=== PATIENT | male | born 1975 | race Caucasian/White ===

== ENCOUNTER 2020-07-10 00:28 | Inpatient (IN) | payer SELFPAY ==
[~2020-07-10] VITALS: Ht 175.3 cm; Wt 100.7 kg
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
[2020-07-10 01:47] LABS: BASO # 0.1 x10^3/uL (0.0-0.2); BASO % 1 % (0-3); EOS # 0.5 x10^3/uL (0.0-0.7); EOS % 6 % (0-3); HEMATOCRIT 42.5 % (39.0-53.0); HEMOGLOBIN 14.8 g/dL (13.0-17.5); LYMPH % 26 % (24-48); MEAN CORPUSCULAR HEMOGLOBIN 33 pg (25-35); MEAN CORPUSCULAR HGB CONC 35 g/dL (31-37); MEAN CORPUSCULAR VOLUME 94 fL (79-100); MONO # 0.6 x10^3/uL (0.0-1.1); MONO % 8 % (0-9); NEUT # 4.5 x10^3/uL (1.8-7.7); NEUT % 59 % (31-73); PLATELET COUNT 217 x10^3/uL (140-400); RED BLOOD COUNT 4.52 x10^6/uL (4.30-5.70); RED CELL DISTRIBUTION WIDTH 13.2 % (11.5-14.5); WHITE BLOOD COUNT 7.7 x10^3/uL (4.0-11.0)
[2020-07-10 02:01] LABS: CALCIUM 9.4 mg/dL (8.5-10.1); CREATININE 0.9 mg/dL (0.7-1.3); GFR 91.7; POTASSIUM 3.6 mmol/L (3.5-5.1)
[2020-07-10 02:04] LABS: ALBUMIN 3.5 g/dL (3.4-5.0); ALBUMIN/GLOBULIN RATIO 1.1 (1.0-1.7); TOTAL BILIRUBIN 0.5 mg/dL (0.2-1.0); TOTAL PROTEIN 6.8 g/dL (6.4-8.2)
[2020-07-10 02:05] LABS: ACETAMIN < 2 mcg/ml (10-30); ETHANOL < 10 mg/dL (0-10); SALIC < 2.8 mg/dL (2.8-20.0)
--- NOTE | 2020-07-10 02:35 | RAD ---
XR CHEST 1V 07/10/2020 1:36 AM INDICATION: Left shoulder pain COMPARISON: None available TECHNIQUE: Portable frontal view of the chest is provided. FINDINGS: The cardiomediastinal silhouette is within normal limits. Lungs are clear. There are no significant pleural effusions. There is no pulmonary vascular congestion. No pneumothora x. No suspicious osseous abnormality. IMPRESSION: There is no acute cardiopulmonary process. Electronically signed by: Vannessa Grey MD (07/10/2020 2:33 AM) [facility]
--- NOTE | 2020-07-10 02:37 | RAD ---
XR SHOULDER_LEFT 2+ VIEWS 07/10/2020 1:36 AM INDICATION: Left shoulder pain COMPARISON: None available. TECHNIQUE: 3 views of the left shoulder are provided. FINDINGS/ IMPRESSION: There is left AC joint separation measuring approximately 2.3 cm. No acute fracture is visualized. Gl enohumeral joint is well aligned. Joint spaces are maintained. Bone mineralization is within normal l imits. Regional soft tissues are within normal limits. There is no soft tissue gas or osseous erosion . No radiopaque foreign body. Electronically signed by: Vannessa Grey MD (07/10/2020 2:34 AM) [facility]
[2020-07-10 03:03] LABS: BARBITURATES NEG (NEG); BENZODIAZEPINES NEG (NEG); CANNABINOIDS NEG (NEG); COCAINE NEG (NEG); METHADONE NEG (NEG); OPIATES NEG (NEG); PHENCYCLIDINE NEG (NEG)
[2020-07-10 03:06] LABS: AMPHETAMINE/METHAMPHETAMINE POS (NEG)
[2020-07-10] MEDS ORDERED: ACETAMINOPHEN 325 MG TABLET. PO PRN (03:45)
[2020-07-10 04:40] VITALS: BP 111/69
[2020-07-10] MEDS ORDERED: MORPHINE SULFATE 2 MG/ML VIAL. IV PRN (05:00)
[2020-07-10] MEDS ORDERED: GABA600T7 PO (05:25)
[2020-07-10] MEDS ORDERED: TRAZ-123 PO (05:25)
[2020-07-10] MEDS ORDERED: CLON2TAB PO (05:25)
[2020-07-10] MEDS ORDERED: QUET200T4 PO (05:25)
--- NOTE | 2020-07-10 05:30 | NUR ---
ADMIT NOTE The patient, ALF GARCIA, 44 y/o, M admitted by PETER ROTH MD, was given written information regarding hospital policies, unit procedures and contact persons. Patient orientated to room, admit packet reviewed, and plan of care discussed. Patient's home meds reviewed and allergies verified; pt reports no preferred pharmacy. Patient resting in bed, call light within reach, bed alarm on, and call light within reach; no other needs voiced at this time.
[2020-07-10 07:00] VITALS: BP 105/67
[2020-07-10] MEDS ORDERED: ONDANSETRON PF 4 MG/2 ML VIAL. IV PRN (07:15)
[2020-07-10] MEDS ORDERED: KETOROLAC 30 MG/ML VIAL. IVP PRN (07:15)
[2020-07-10] MEDS ORDERED: diphenhydrAMINE 50 MG/ML VIAL IVP PRN (07:15)
--- NOTE | 2020-07-10 07:17 | NUR ---
COVID tests delivered to pharmacy by CHECK[facility] at this time.
[2020-07-10] MEDS: GABAPENTIN 300 MG CAPSULE. PO SCH ×3 (07:34→20:49)
[2020-07-10] MEDS: QUEtiapine 100 MG TABLET. PO SCH ×2 (07:34→20:49)
--- NOTE | 2020-07-10 08:41 | RAD ---
EXAM: XR CLAVICLE 07/10/2020 8:23 AM CLINICAL INDICATION: Left AC joint injury. COMPARISON: Left shoulder radiograph 07/10/2020 TECHNIQUE: Bilateral clavicle radiographs FINDINGS: There is mild elevation of the left distal clavicle relative to the acromion, as well as m ild acromioclavicular joint and coracoclavicular interval widening on the left relative to the right. Chronic-appearing ossicle at the inferior margin of the distal clavicle. There is mild degenerative joint disease of the right acromioclavicular joint with osseous hypertrophy. Glenohumeral alignment i s normal. Soft tissue is normal. IMPRESSION: Findings of grade 3 left AC joint injury, possibly chronic. Electronically signed by: Soila Guzman MD (07/10/2020 8:38 AM) [id number]
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
--- NOTE | 2020-07-10 09:24 | NUR ---
refused Addendum: 07/10/20 at 8038 by STEPHANIE WOLF RN RN Amended: Links added.
[2020-07-10 11:00] VITALS: BP 111/73
--- NOTE | 2020-07-10 11:24 | PDOC ---
GENERAL General: History and physical [id number] VITAL SIGNS Vital Signs/I&O: Vital Signs Date Time Temp Pulse Resp B/P (MAP) Pulse Ox O2 Delivery O2 Flow Rate FiO2 07/10/20 07:00 97.8 88 18 105/67 (80) 97 Room Air 97.8 I & O 07/09/20 07/09/20 07/10/20 15:00 23:00 07:00 Intake Total 0 ml Balance 0 ml ALLERGIES Allergies: Allergies Coded Allergies Type Severity Reaction Last Updated Verified Penicillins Allergy Unknown 07/10/20 Yes codeine Allergy Unknown 07/10/20 Yes MEDS Medications: Current Medications Medications (Trade) Dose Ordered Sig/Angel Route PRN Reason Start Time Stop Time Status Last Admin Dose Admin Morphine Sulfate (Morphine Sulfate) 2 mg PRN Q3HRS PRN IV PAIN 07/10/20 05:00 07/10/20 05:42 LAB Lab: Laboratory Tests Test 07/10/20 01:40 07/10/20 02:47 07/10/20 07:10 White Blood Count 7.7 x10^3/uL (4.0-11.0) Red Blood Count 4.52 x10^6/uL (4.30-5.70) Hemoglobin 14.8 g/dL (13.0-17.5) Hematocrit 42.5 % (39.0-53.0) Mean Corpuscular Volume 94 fL (79-100) Mean Corpuscular Hemoglobin 33 pg (25-35) Mean Corpuscular Hemoglobin Concent 35 g/dL (31-37) Red Cell Distribution Width 13.2 % (11.5-14.5) Platelet Count 217 x10^3/uL (140-400) Neutrophils (%) (Auto) 59 % (31-73) Lymphocytes (%) (Auto) 26 % (24-48) Monocytes (%) (Auto) 8 % (0-9) Eosinophils (%) (Auto) 6 % (0-3) H Basophils (%) (Auto) 1 % (0-3) Neutrophils # (Auto) 4.5 x10^3/uL (1.8-7.7) Lymphocytes # (Auto) 2.0 x10^3/uL (1.0-4.8) Monocytes # (Auto) 0.6 x10^3/uL (0.0-1.1) Eosinophils # (Auto) 0.5 x10^3/uL (0.0-0.7) Basophils # (Auto) 0.1 x10^3/uL (0.0-0.2) Sodium Level 140 mmol/L (136-145) Potassium Level 3.6 mmol/L (3.5-5.1) Chloride Level 104 mmol/L (98-107) Carbon Dioxide Level 27 mmol/L (21-32) Anion Gap 9 (6-14) Blood Urea Nitrogen 17 mg/dL (8-26) Creatinine 0.9 mg/dL (0.7-1.3) Estimated GFR (Cockcroft-Gault) 91.7 BUN/Creatinine Ratio 19 (6-20) Glucose Level 103 mg/dL (70-99) H Calcium Level 9.4 mg/dL (8.5-10.1) Total Bilirubin 0.5 mg/dL (0.2-1.0) Aspartate Amino Transferase (AST) 24 U/L (15-37) Alanine Aminotransferase (ALT) 57 U/L (16-63) Alkaline Phosphatase 136 U/L (46-116) H Creatine Kinase 152 U/L (39-308) Total Protein 6.8 g/dL (6.4-8.2) Albumin 3.5 g/dL (3.4-5.0) Albumin/Globulin Ratio 1.1 (1.0-1.7) Salicylates Level < 2.8 mg/dL (2.8-20.0) L Salicylate Last Dose Date Unk Salicylate Last Dose Time Unk Acetaminophen Level < 2 mcg/ml (10-30) L Acetaminophen Last Dose Date Unk Acetaminophen Last Dose Time Unk Ethyl Alcohol Level < 10 mg/dL (0-10) Urine Opiates Screen Neg (NEG) Urine Methadone Screen Neg (NEG) Urine Barbiturates Neg (NEG) Urine Phencyclidine Screen Neg (NEG) Urine Amphetamine/Methamphetamine Pos (NEG) Urine Benzodiazepines Screen Neg (NEG) Urine Cocaine Screen Neg (NEG) Urine Cannabinoids Screen Neg (NEG) Urine Ethyl Alcohol Neg (NEG) SARS-CoV-2 Antigen (Rapid) Negative (NEGATIVE) Laboratory Tests 07/10/20 01:40 Laboratory Tests 07/10/20 01:40 Justifications for Admission Other Justification COLIN ABERNATHY MD Jul 10, 2020 11:24
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
[2020-07-10] MEDS: clonazePAM 0.5 MG TABLET PO PRN ×2 (13:02→20:57)
[2020-07-10 15:00] VITALS: BP 99/57
[2020-07-10 19:00] VITALS: BP 110/62
[2020-07-10] MEDS ORDERED: traZODone 100 MG TABLET. PO SCH (21:00)
[2020-07-10] MEDS ORDERED: PSYLLIUM HUSK (SUGAR FREE) 1 PKT PACKET PO SCH (21:00)
[2020-07-10 22:48] VITALS: BP 106/65
[2020-07-11 02:53] VITALS: BP 100/59
[2020-07-11 07:31] LABS: BASO # 0.1 x10^3/uL (0.0-0.2); BASO % 1 % (0-3); EOS # 0.5 x10^3/uL (0.0-0.7); EOS % 7 % (0-3); HEMATOCRIT 40.4 % (39.0-53.0); HEMOGLOBIN 13.6 g/dL (13.0-17.5); LYMPH # 1.7 x10^3/uL (1.0-4.8); LYMPH % 24 % (24-48); MEAN CORPUSCULAR HEMOGLOBIN 32 pg (25-35); MEAN CORPUSCULAR HGB CONC 34 g/dL (31-37); MEAN CORPUSCULAR VOLUME 95 fL (79-100); MONO # 0.5 x10^3/uL (0.0-1.1); MONO % 8 % (0-9); NEUT # 4.2 x10^3/uL (1.8-7.7); NEUT % 60 % (31-73); PLATELET COUNT 186 x10^3/uL (140-400); RED BLOOD COUNT 4.24 x10^6/uL (4.30-5.70); RED CELL DISTRIBUTION WIDTH 13.2 % (11.5-14.5); WHITE BLOOD COUNT 6.9 x10^3/uL (4.0-11.0)
[2020-07-11 07:34] VITALS: BP 101/56
[2020-07-11 07:53] LABS: ALBUMIN 2.6 g/dL (3.4-5.0); ALBUMIN/GLOBULIN RATIO 0.9 (1.0-1.7); CALCIUM 8.1 mg/dL (8.5-10.1); GFR 81.2; POTASSIUM 3.7 mmol/L (3.5-5.1); TOTAL BILIRUBIN 0.2 mg/dL (0.2-1.0); TOTAL PROTEIN 5.6 g/dL (6.4-8.2)
[2020-07-11] MEDS: QUEtiapine 100 MG TABLET. PO SCH (08:52)
[2020-07-11] MEDS: GABAPENTIN 300 MG CAPSULE. PO SCH ×2 (08:52→14:00)
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
--- NOTE | 2020-07-11 09:27 | NUR ---
SW following. Discussed with RN, pt homeless from [place] originally, room air, regular diet, rapid COVID-19 negative. Pt seen by MARJORIE on Saturday. Pt provided with resources, trying to make a decision about what he wants to do, and whether he wants to go to [facility] or not. Soila (MARJORIE) coming to see pt again today. KAVITA will continue to follow.
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
--- NOTE | 2020-07-11 10:00 | DISCH ---
DISCHARGE INSTRUCTIONS Condition on Discharge Condition on Discharge: Stable Activity After Discharge Activity Instructions for Disc: Activity as tolerated Lifting Instructions after Dis: No heavy lifting, No pulling or pushing Driving Instructions after Dis: Do not drive today Diet after Discharge Diet after Discharge: Regular Liquid Texture: Thin Liquid Checks after Discharge Checks after discharge: Check blood press - daily Contacting the [facility] after DC Call your doctor for: If your condition worsens Follow-Up Follow up with: pcp palmira, [facility] Treatment/Equipment after DC Adaptive Equipment Issued: None NATHALIA VELASQUEZ MD Jul 11, 2020 10:00
[2020-07-11 11:04] VITALS: BP 100/57
--- NOTE | 2020-07-11 11:56 | NUR ---
Spoke with KAVITA Cm, she stated PAT team is on the way to assess pt for agreeability for [facility].
--- NOTE | 2020-07-11 13:37 | NUR ---
Chaparrita from PAT team stated pt is not refusing services and is ready to go.
--- NOTE | 2020-07-11 13:45 | NUR ---
Pt. not agreeable to go to [facility]. Chaparrita with PAT team notified, card with information to [facility] given to pt. Pt. to go via cab.
--- NOTE | 2020-07-11 14:45 | NUR ---
Pt. discharged to [facility] via cab. Pt signed discharge instructions, refused to go over paperwork. [facility] cared also given to pt.
== END 2020-07-11 14:49 | disposition home or self-care (01) | DRG 563 ==
LOC: ER 00:28 → 4 NORTH 04:08
PROVIDERS: ADMIT Internal Medicine; ATTEND Internal Medicine
DX: S43.102A Unspecified dislocation of left acromioclavicular joint, initial encounter (principal); F19.10 Other psychoactive substance abuse, uncomplicated; F31.9 Bipolar disorder, unspecified; F41.9 Anxiety disorder, unspecified; G62.9 Polyneuropathy, unspecified; Z56.0 Unemployment, unspecified; W01.0XXA Fall on same level from slipping, tripping and stumbling without subsequent striking against object, initial encounter; Y93.89 Activity, other specified; Y92.89 Other specified places as the place of occurrence of the external cause; Y99.8 Other external cause status; Z59.0 Homelessness; Z80.0 Family history of malignant neoplasm of digestive organs; Z88.5 Allergy status to narcotic agent; Z88.0 Allergy status to penicillin; Z20.822 Contact with and (suspected) exposure to COVID-19
CPT/HCPCS: 36415; 71045; 73030; 80053; 80307; 80329; 82550; 85025; 87426; A4565; G0480; J1885; J2270; U0003; 73000-50; 99285-25; G0378

== ENCOUNTER → 2020-07-18 | Emergency (ER) | payer SELFPAY ==
[2020-07-11 11:04] VITALS: BP 100/57
[~2020-07-18] MED LIST: CLON2TAB PO; GABA600T7 PO; QUET200T4 PO; TRAZ-123 PO
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
== END | disposition left against medical advice (07) ==
LOC: ER 10:26
DX: M25.519 Pain in unspecified shoulder (principal); Z53.21 Procedure and treatment not carried out due to patient leaving prior to being seen by health care provider